=== PATIENT | female | born 1940 | race Caucasian/White ===

== ENCOUNTER 2022-07-17 18:38 | Emergency (ER) | payer BC, MEDICAID ==
[~2022-07-17] VITALS: Ht 152.4 cm; Wt 60.0 kg
[~2022-07-17 18:38] MED LIST: ATOR-2 MT; CLOP75TA33 PO; HYDR500C18 PO; METO-539 MT; PANT40SU MT; SUCR1TAB30 MT; WARF3TAB28 MT
[2022-07-17 19:13] LABS: BASOPHILS % 0.5 % (0.0-2.0); HEMATOCRIT. 38.9 % (36.0-48.0); HEMOGLOBIN. 13.6 g/dL (12.0-16.0); LYMPHOCYTES % 15.8 % (20.0-50.0); MEAN CORPUSCULAR HEMOGLOBIN 44.6 pg (28.0-32.0); MEAN CORPUSCULAR VOLUME 127.9 fL (81.0-99.0); MONOCYTES % 6.3 % (2.0-8.0); NEUTROPHILS % 76.4 % (40.0-76.0); PLATELET 291 x1000/uL (130-400); RED BLOOD CELL COUNT 3.04 mill/uL (4.2-5.4); RED CELL DISTRIBUTION WIDTH 13.2 % (11.6-14.6)
[2022-07-17 19:27] LABS: CHLORIDE 107 mEq/L (98-107)
[2022-07-17 19:31] LABS: PLATELET ESTIMATE NORMAL
[2022-07-17] MEDS ORDERED: ONDANSETRON HCL 4MG/2ML INJ IV STA (19:45)
[2022-07-17] MEDS ORDERED: SODIUM CHLORIDE 0.9% 1,000 ML IV ONE (19:45)
[2022-07-17] MEDS ORDERED: MORPHINE SULFATE 4 MG/ML CPJ (NOT FOR IM USE) IV STA (19:45)
[2022-07-17 20:30] LABS: INR 1.4; PARTIAL THROMBOPLASTIN TIME 39.9 sec (23.4-31.0); PROTHROMBIN TIME 14.8 sec (9.6-11.0)
[2022-07-17 20:42] LABS: CLARITY URINE CLEAR (CLEAR); COLOR URINE YELLOW (YELLOW); KETONES URINE NEGATIVE (NEGATIVE); LEUKOCYTE ESTERASE URINE 1+ (NEGATIVE); NITRITE URINE NEGATIVE (NEGATIVE); OCCULT BLOOD URINE NEGATIVE (NEGATIVE); PROTEIN URINE 1+ (NEGATIVE); SPECIFIC GRAVITY URINE 1.009 (1.005-1.030); UROBILINOGEN URINE 0.2 E.U./dL (0.2-1.0)
[2022-07-17] MEDS ORDERED: NAPR375T5 MT (22:39)
[2022-07-17 23:00] VITALS: BP 134/74
== END 2022-07-17 23:05 | disposition home or self-care (01) ==
LOC: ER 18:38
DX: M25.552 Pain in left hip (principal); R60.0 Localized edema; I25.10 Atherosclerotic heart disease of native coronary artery without angina pectoris; I10 Essential (primary) hypertension; Z86.73 Personal history of transient ischemic attack (TIA), and cerebral infarction without residual deficits
CPT/HCPCS: 36415; 71045; 74176; 80053; 81003; 83690; 83880; 84484; 85025; 85610; 85730; 87086; 93005; 93970; 96361; 96374; 96375; 99285; J2270; J2405; J7030; Z7610

== ENCOUNTER 2022-08-23 22:27 | Emergency (ER) | payer MEDICAID ==
[~2022-08-23] VITALS: Ht 162.6 cm; Wt 73.0 kg
[~2022-08-23 22:27] MED LIST changes: +NAPR375T5 MT
[2022-08-23 22:45] VITALS: BP 138/78; PULSE 82; RESP 16; TEMP 98.1; O2SAT 99
[2022-08-23] MEDS ORDERED: MORPHINE SULFATE 10 MG/ML CPJ IM ONE (23:15)
[2022-08-24] MEDS ORDERED: ACET-2708 MT (03:18)
== END 2022-08-24 08:20 | disposition home or self-care (01) ==
LOC: ER 22:27
DX: M25.551 Pain in right hip (principal); Z68.27 Body mass index [BMI] 27.0-27.9, adult; I10 Essential (primary) hypertension; Z98.890 Other specified postprocedural states; Z86.72 Personal history of thrombophlebitis
CPT/HCPCS: 72100; 73502; 99284